=== PATIENT | female | born 1960 ===

== ENCOUNTER 2025-06-22 06:05 | Day surgery (SDC) | payer OTHER ==
[2025-06-16 11:58] VITALS: BP 138/63
[~2025-06-22] VITALS: Ht 154.9 cm; Wt 63.5 kg
[~2025-06-22 06:05] MED LIST: NAPROXEN SODIU550 MG PO; TRAZODONE HCL150 MG
[2025-06-22] MEDS ORDERED: IBU600 MG PO (11:37)
[2025-06-22] MEDS ORDERED: POVIDONE-IODINE 118 ML BOTT TOP ONE (13:45)
== END 2025-06-22 16:30 | disposition home or self-care (01) ==
LOC: CIR.AMB 06:05
PROVIDERS: ATTEND Obstetrics & Gynecology Gynecology
DX: N85.01 Benign endometrial hyperplasia (principal)